=== PATIENT | female | born 1970 | race Caucasian/White ===

== ENCOUNTER 2018-04-28 09:43 | Day surgery (SDC) | payer MEDICAID ==
[~2018-04-28 09:43] MED LIST: CEFAZOLIN 1 GM/50 ML (PMX) 50 ML IVPB; SOD CHLORIDE 0.9% 1,000 ML IV
[2018-04-28] MEDS ORDERED: LIDOCAINE 2% (SDV) 5 ML INJ (11:35)
[2018-04-28] MEDS ORDERED: CEFAZOLIN 1 GM INJ (11:35)
[2018-04-28] MEDS ORDERED: PROPOFOL 20 ML (11:35)
[2018-04-28] MEDS ORDERED: MEPERIDINE 100 MG INJ (11:36)
[2018-04-28] MEDS ORDERED: METOCLOPRAMIDE 10 MG INJ (11:36)
[2018-04-28] MEDS ORDERED: ONDANSETRON 4 MG INJ (11:36)
[2018-04-28] MEDS ORDERED: HYDROmorphONE 1 MG/5 ML IV SYRINGE IV ×2 (12:00)
[2018-04-28] MEDS ORDERED: FENTAnyl 50 MCG/ML VIAL IV ×2 (12:00)
[2018-04-28] MEDS ORDERED: DIPHENHYDRAMINE 50 MG INJ IV (12:00)
[2018-04-28] MEDS ORDERED: MIDAZOLAM 1 MG/ML 2 ML INJ IV (12:00)
[2018-04-28] MEDS ORDERED: EPHEDrine SULFATE 50 MG/5 ML SYG IV (12:00)
[2018-04-28] MEDS ORDERED: METOCLOPRAMIDE 10 MG INJ IV (12:00)
[2018-04-28] MEDS ORDERED: hydrALAzine 20 MG INJ IV (12:00)
[2018-04-28] MEDS ORDERED: MEPERIDINE 25 MG INJ IV (12:00)
[2018-04-28] MEDS ORDERED: OXYCODONE/ACETAMINOPHEN (5/325) TAB PO ×2 (12:00)
[2018-04-28] MEDS ORDERED: ONDANSETRON 4 MG INJ IV (12:00)
[2018-04-28] MEDS ORDERED: LABETALOL HCL 20MG INJ IV (12:00)
[2018-04-28] MEDS ORDERED: HYDROCODONE/APAP (7.5/325) TAB PO (13:00)
[2018-04-28] MEDS: HYDROmorphONE 1 MG/5 ML IV SYRINGE IV (13:11)
[2018-04-28] MEDS: FENTAnyl 50 MCG/ML VIAL IV (13:35)
[2018-04-28] MEDS: ONDANSETRON (ODT) 4 MG TAB ODT (15:35)
== END 2018-04-28 15:48 | disposition home or self-care (01) ==
LOC: SDS 09:43
DX: N60.12 Diffuse cystic mastopathy of left breast (principal); N60.22 Fibroadenosis of left breast
CPT/HCPCS: 19120; 84703; 88307